=== PATIENT | female | born 1995 | race Caucasian/White ===

== ENCOUNTER → 2021-10-26 14:37 | Outpatient (CLI) | payer OTHER, SELFPAY ==
--- NOTE | 2021-10-26 | DI.ECHO.S_ITS ---
[place] +---------+ [facility] +---------+ : : [address] : : : : [id number] : : : : Phone: [phone]---------+ Echocardiogram Report + + :Name: BATOOL IVEY Study Date: 10/26/2021 Height: 66 in : :[facility] ReadingLocation: Weight: 240 lb : : Gender: Female BSA: 2.2 m2 : :: 1995 Age: 26 yrs BP: 125/90 mmHg: :Reason For Study: Cardiomyopathy, Hypertrophic : :Ordering Physician: : :JUAN AZEVEDO Performed By: Joaquin Aggarwal : :Referring: JUAN AZEVEDO : + + Interpretation Summary The left ventricle is normal in size and wall thickness. The ejection fraction is estimated to be 55-60%. Diastolic parameters suggest probable normal left ventricular diastolic function and normal filling pressures. The right ventricle is normal in size and function. No significant valvular abnormalities. Unable to estimate PASP. Procedure: A two-dimensional transthoracic echocardiogram with color flow and Doppler was performed. The study quality was technically adequate. There is no prior echocardiogram noted for this patient. The patient was in normal sinus rhythm during the exam. Left Ventricle: The left ventricle is normal in size and wall thickness. Left ventricular systolic function is normal. The ejection fraction is estimated to be 55-60%. There are no focal wall motion abnormalities. Diastolic parameters suggest probable normal left ventricular diastolic function and normal filling pressures. Right Ventricle: The right ventricle is normal in size and function. Atria: Both atria are normal in size. The interatrial septum grossly appears intact with no obvious evidence for an atrial septal defect. Mitral Valve: The mitral valve is normal in structure and function. There is trace mitral regurgitation. Aortic Valve: The aortic valve opens well. There is no aortic valve stenosis. No aortic regurgitation is present. Tricuspid Valve: The tricuspid valve is normal in structure and function. No tricuspid regurgitation. Pulmonary artery pressures cannot be estimated because of the lack of a measurable TR jet velocity. Pulmonic Valve: The pulmonic valve is normal in structure and function. There is no pulmonic valvular regurgitation. Great Vessels: The aortic root is normal size. The dimensions of the ascending aorta are normal. The inferior vena cava was not visualized. Pericardium/ Pleura There is no pericardial effusion. There is no pleural effusion. MMode/2D Measurements & Calculations LVIDd: 4.6 cm LVOT diam: 1.9 cm LVIDs: 3.1 cm Ao root diam: 2.9 cm FS: 32.6 % asc Aorta Diam: 2.4 cm IVSd: 0.70 cm LVPWd: 0.70 cm LV noel. diameter/BSA (cm/m^2): 2.1 LV sys. diameter/BSA (cm/m^2): 1.4 LA dimension: 2.7 cm RA long axis: 4.0 cm LA A2 area: 10.1 cm2 LA A4 area: 12.1 cm2 LA length (vol): 4.3 cm LA vol: 24.4 ml LA vol index: 11.3 ml/m2 TAPSE_phl: 2.3 cm Doppler Measurements & Calculations Ao V2 max: 148.0 cm/sec LVOT Max Lennox: 96.6 cm/sec Ao V2 mean: 99.6 cm/sec LV V1 max P.7 mmHg Ao max P.0 mmHg LV V1 VTI: 18.2 cm Ao mean P.0 mmHg MARCELO(I,D): 1.9 cm2 Ao V2 VTI: 26.6 cm MARCELO(V,D): 1.9 cm2 sev ratio: 0.68 MARCELO indexed to BSA (cm^2/m^2): 0.90 MV E max lennox: 79.3 cm/sec SV(LVOT): 51.6 ml MV A max lennox: 62.1 cm/sec MV E/A: 1.3 Med Peak E' Lennox: 12.9 cm/sec E/E' med: 6.1 Lat Peak E' Lennox: 13.9 cm/sec E/E' lat: 5.7 E/e' average: 5.9 MV dec time: 0.20 sec AV VR_phl: 0.65 MV P1/2t-pr_phl: 60.0 msec MARCELO(VTI)/BSA_phl: 0.90 Reading Physician:04:04 PM
== END ==
PROVIDERS: Referring Provider Family Medicine; Visit Provider Family Medicine
DX: I42.2 Other hypertrophic cardiomyopathy (principal)
CPT/HCPCS: 93306